=== PATIENT | male | born 1995 | race Caucasian/White ===

== ENCOUNTER 2018-03-31 17:01 | Emergency (ER) | payer BC ==
[2018-03-31 18:51] LABS: ADD MAN DIFF? NO
[2018-03-31 18:54] LABS: BASOPHILS % 0.3 % (0.0-2.0); EOSINOPHILS # 0.2 10^3/ul (0.0-0.5); EOSINOPHILS % 2.4 % (0.0-7.0); HEMATOCRIT 46.2 % (42.0-52.0); HEMOGLOBIN 15.2 g/dl (14.0-18.0); LYMPHOCYTES # 2.3 10^3/ul (0.8-2.9); LYMPHOCYTES % 24.6 % (15.0-51.0); MEAN CORPUSCULAR HEMOGLOBIN 28.6 pg (29.0-33.0); MEAN CORPUSCULAR HGB CONC 32.9 g/dl (32.0-37.0); MONOCYTE # 0.7 10^3/ul (0.3-0.9); MONOCYTES % 7.5 % (0.0-11.0); NEUTROPHIL # 5.9 10^3/ul (1.6-7.5); NEUTROPHILS % 64.9 % (39.0-77.0); PLATELET COUNT 332 10^3/UL (140-415); RED BLOOD COUNT 5.31 10^6/ul (4.70-6.10); RED CELL DISTRIBUTION WIDTH 12.2 % (11.5-14.5)
[2018-03-31 18:54] LABS: WHITE BLOOD COUNT 9.2 10^3/ul (4.8-10.8)
[2018-03-31 19:14] LABS: C-REACTIVE PROTEIN 2.3 mg/dl (0.0-0.9)
[2018-03-31 19:58] LABS: ERYTHROCYTE SEDIMENTATION RATE 26 mm/Hr (0-15)
[2018-03-31] MEDS: IBUPROFEN 800 MG TAB PO (20:27)
== END 2018-03-31 22:29 | disposition home or self-care (01) ==
LOC: FTE 17:01
DX: M25.561 Pain in right knee (principal)
CPT/HCPCS: 73562; 85025; 85651; 86140; 99284-25

== ENCOUNTER → 2018-06-15 | Outpatient (CLI) | payer BC | END | disposition home or self-care (01) | LOC: HKI 14:39 | DX: M25.561 Pain in right knee (principal); R22.41 Localized swelling, mass and lump, right lower limb | CPT/HCPCS: Z7500 ==